=== PATIENT | male | born 1945 ===

== ENCOUNTER 2018-12-28 11:15 | Outpatient (CLI) | payer MEDICARE ==
--- NOTE | 2018-12-28 17:00 | RAD ---
CHEST TWO VIEWS: 12/28/18 No prior films are available for comparison. On the lateral view, there is increased density in what appears to be the right lower lobe posteriorly. It is difficult to see on the PA film, but I suspect that there is an infiltrate here. Given the symptoms, pneumonia is presumed. The lungs are mildly hy perexpanded so there is some air trapping. The heart size is normal. Calcification is seen in the aor tic arch. There is no congestive change. IMPRESSION: Probable right lower lobe infiltrate posteriorly suggestive of pneumonia. I would treat the patient a s such and then repeat a chest x-ray following treatment. Code T POS: HOME
[2018-12-28 17:48] LABS: Mean Corpuscular HGB CONC 33.3 g/dL (32.0-36.0); Mean Corpuscular Hemoglobin 33.5 pg (27.0-31.0); Mean Platelet Volume 8.2 fL (7.4-10.4); Platelet Count 152 thou/uL (130-400); RBC Distribution Width 12.3 % (11.5-14.5); Red Blood Cell (RBC) Count 4.19 mill/uL (4.70-6.10); White Blood Cell (WBC) Count 7.7 thou/uL (4.8-10.8)
[2018-12-28 18:20] LABS: ALT (SGPT) 18 U/L (8-55); AST (SGOT) 23 U/L (5-34); Albumin 4.2 g/dL (3.4-4.8); Alkaline Phosphatase 84 U/L (40-150); Anion Gap 17 mmol/L (10-20); BUN (Urea Nitrogen) 8 mg/dL (8.4-25.7); Bilirubin, Total 1.7 mg/dL (0.2-1.2); Calc. Creatinine Clearance 0 mL/min (70-130); Calcium 9.3 mg/dL (7.8-10.44); Carbon Dioxide 25 mmol/L (23-31); Cardiac Risk 2.3 (Less than 4.5); Chloride 86 mmol/L (98-107); Cholesterol 146 mg/dl (< 200 Desired); Estimated GFR-MDRD 89; Globulin 2.6 g/dL (2.4-3.5); Glucose 95 mg/dL (83-110); HDL Cholesterol 63 mg/dL (>60 Neg Risk); LDL Cholesterol, Calculated 72 mg/dL; Potassium 3.3 mmol/L (3.5-5.1); Protein, Total 6.8 g/dL (5.8-8.1); Sodium 125 mmol/L (136-145); Triglycerides 53 mg/dL (Less than 150)
== END 2018-12-28 11:16 | disposition home or self-care (01) ==
LOC: BURRAD 11:15
PROVIDERS: ATTEND Nurse Practitioner Family
DX: J20.9 Acute bronchitis, unspecified (principal); R06.00 Dyspnea, unspecified; R06.2 Wheezing; E78.5 Hyperlipidemia, unspecified; R53.83 Other fatigue; R53.1 Weakness; R06.02 Shortness of breath; R05 Cough
CPT/HCPCS: 36415; 71046; 80053; 80061; 83880; 84443; 85027